=== PATIENT | female | born 1960 | race Caucasian/White ===

== ENCOUNTER 2018-08-16 05:05 | Inpatient (IN) ==
[2018-08-16] MEDS ORDERED: Chlorhexidine 4% Topical 120 APPLIC/120 ML Bottle TOPICAL SCH (05:45)
[2018-08-16] MEDS ORDERED: Chlorhexidine Gluconate 2% 1 Pack (2 Cloths) TOPICAL ONE (05:45)
[2018-08-16] MEDS ORDERED: Sodium Chlor 0.9% Inj 40 ML, Bupivacaine Liposo PF 1.3% Inj 20 ML P-ARTICULR SCH ×2 (05:45)
[2018-08-16] MEDS ORDERED: Sodium Chlor 0.9% Inj 500 ML IV.CONT ONE (05:45)
[2018-08-16] MEDS ORDERED: Metoprolol Tartrate 25 MG Tablet PO ONE (05:45)
[2018-08-16] MEDS ORDERED: SODIUM CHLOR 0.9% IV.SIG SCH ×2 (06:00→10:00)
[2018-08-16] MEDS ORDERED: ceFAZolin 2 GM Premix Inj 2 GM/50 ML PIGGYBACK IV.SIG SCH (06:00)
[2018-08-16] MEDS ORDERED: TRANEXAMIC ACID IV.SIG SCH ×2 (06:00→10:00)
[2018-08-16] MEDS ORDERED: Famotidine PF Inj 20 MG/2 ML Vial ONE (06:22)
[2018-08-16] MEDS ORDERED: Propofol Inj 500 MG/50 ML Vial ONE (06:22)
[2018-08-16] MEDS ORDERED: fentaNYL Citrate Inj 100 MCG/2 ML Ampul ONE (06:22)
[2018-08-16] MEDS ORDERED: Bupivacaine/Dextrose 0.75% Inj 2 ML Ampul ONE (06:46)
[2018-08-16] MEDS ORDERED: Ketamine Inj 50 MG/5 ML Syringe IV.PUSH ONE (06:46)
[2018-08-16] MEDS ORDERED: ACETAMINOPHEN 650 MG PO PRN (06:54)
[2018-08-16] MEDS ORDERED: Morphine Inj 4 MG/ML Vial IV.PUSH PRN (06:55)
[2018-08-16] MEDS ORDERED: Zolpidem Tartrate 5 MG Tablet PO PRN (06:55)
[2018-08-16] MEDS ORDERED: Bisacodyl 10 MG Supp RECTAL PRN (06:55)
[2018-08-16] MEDS ORDERED: Acetaminophen 325 MG Tablet PO PRN (06:55)
[2018-08-16] MEDS ORDERED: Tranexamic Acid Inj 0 MG in Sodium Chlor 0.9% Inj 100 ML IV.SIG ONE (06:55)
[2018-08-16] MEDS ORDERED: Aluminum/Magnesium/Simethacone Susp 30 ML UDC PO PRN (06:55)
[2018-08-16] MEDS ORDERED: Post-op Orders (for Pharmacy) OTHER STA (06:55)
--- NOTE | 2018-08-16 07:02 | P.DCO ---
- Physical Therapy Physical Therapy: Gait training Hip: Total hip, Protocol: Left, Posterior hip precautions, Progress to weight bearing Canvas Knee Splint: When in bed with 2 pillows between thighs Left Lower Extremity Weight Bearing: Weight bearing as tolerated Left Lower Extremity Range of Motion: Active ROM - Nursing Nursing: Dressing changes Dressing changes: Daily dressing change, Coverderm/Primapore Additional instructions: Do not remove Dermabond Prineo (the tape that is directly on the wound). Leave the Optifoam dressing in place for 7 days. After this, daily dressing changes will be done taking care to avoid injuring or removing the Dermabond Prineo. - Certification Need for Home Health services: I have seen patient Thao Vaughan on 08/16/18. My clinical findings support the need for the requested home health care services because: Need for Home Health Services: Limited ability to care for self, High risk of falls Homebound Certification: I certify that my clinical findings support that this patient is homebound because: Homebound Certification: Post-op weakness, Unsteady gait/balance, Unsafe to leave home unassisted
--- NOTE | 2018-08-16 09:21 | P.OP ---
- Preoperative Diagnosis (1) Primary osteoarthritis of left hip - Postoperative Diagnosis (1) Primary osteoarthritis of left hip Date of procedure: 08/16/18 Procedure: Left total hip arthroplasty using [place] prosthesis. Anesthesia: local (Exparel), spinal Surgeon: Stefan Baird MD Film Producer: SCOTT Joaquin Estimated blood loss (mL): 200 Pathology: none sent Operation and Findings: Indications and Findings: This 57-year-old woman has had long-standing left hip pain for at least a year. She has had progressive worsening of her pain with loss of ability to activities of daily living without pain. Ambulation tolerance is 10-15 minutes. She has had intra-articular corticosteroids, nonsteroidal anti-inflammatory agents, activity modification, exercise, physical therapy and ambulatory aids without any benefit. Physical findings showed limited range of motion with crepitation on motion and an antalgic gait. X-rays showed severe osteoarthritis with loss of articular cartilage to bone- on-bone, subchondral sclerosis, subchondral cysts and osteophytes. Operative findings: There is severe osteoarthritis with loss of articular cartilage to [id number], subchondral sclerosis and osteophytes. Implants: The acetabular component was a 52 mm Trident II Tritanium cluster shell with a 36 mm inner diameter, X3 polyethylene, 0 degree lip liner. The femoral component was an Accolade II size 4 x 132 degrees. The femoral head was a Biolox Delta size 36 mm outer diameter, -5 mm offset. The patient was brought to the clean air operating suite and a spinal anesthetic was administered. The patient was positioned into a lateral position with the operative hip up on a Biomet lateral positioner. The hip and lower extremity were prepped with alcohol, Hibiclens and ChloraPrep and draped in the usual manner with the hip draped free. Patient received prophylactic antibiotics preoperatively. The patient also received tranexamic acid preoperatively. An appropriate timeout procedure was carried out. An incision was made from the midportion of the greater trochanter proximally and posteriorly paralleling the fibers of the gluteus rosalia. The incision was deepened through subcutaneous tissues down to the fascia vidal and gluteus fascia. The gluteus fascia was then split longitudinally in line with its fibers up to the upper portion of the fascia vidal. With wound towels in place, the Charnley retractor was inserted. The sciatic nerve was identified and protected throughout the procedure. Dissection was then carried down to the interval between the gluteus minimus and the piriformis. A retractor was inserted. The piriformis and obturator conjoined tendon was released from the greater trochanter and reflected off the capsule. A capsulotomy was made longitudinally along the femoral neck to the base of the femoral neck and then curved distally along the posterior aspect of the greater trochanter. The hip was internally rotated. Further release of the external rotators was carried out exposing the hip. The hip was dislocated. The femoral neck was transected at the appropriate level using the oscillating saw placement of appropriate retractors. The femoral head was removed. Preparation of the femur was initiated with a box osteotome followed by a curet to identify the medullary canal. Broaching was then initiated with the size 0 broach and went in 1 size increments up to size 4. The broach handle was removed. The femoral neck was then trimmed with a calcar planar. Attention was then directed to the acetabulum. Soft tissues were debrided from the acetabulum. Retractors were placed about the acetabulum. Reaming was then initiated with the 45 millimeter reamer and went in 1-2 mm increments up to the 52 millimeter diameter reamer. A trial reduction with the 52 millimeter trial prosthesis was carried out. When this was deemed to be appropriate, the trial prosthesis was removed. The acetabulum was irrigated and cleaned. The actual prosthesis as noted above was impacted into place and seated appropriately. Drill holes were made and sounded. Appropriate sized screws were inserted to stabilize the acetabulum further. The liner as noted above was inserted into the acetabular shell and impacted into place. Osteophytes were trimmed from the acetabulum. Local anesthetic was administered throughout the area of the acetabulum and anterior aspect of the femur. The trial neck was placed on the broach for the above-noted prosthesis. The femoral head trial was placed onto the femoral neck . A trial reduction was carried out. Adjustment was made as needed. The stability, leg length and motion were excellent. There was no pistoning. The trial prosthesis was removed. The broach was removed. The femoral component was impacted into the medullary canal of the femur after irrigation and suctioning. When this was appropriately seated a trial reduction was again carried out with the trial prosthesis. There was no pistoning. The leg length was appropriate. The stability and motion were excellent. The trial prosthesis was then removed. After cleaning and drying the trunion of the femoral component, the above-noted femoral head was impacted onto the trunnion. The hip was reduced. The stability and mobility were again checked along with leg lengths as noted above. The hip was positioned appropriately and closure commenced after the remainder of the local anesthetic was injected throughout the hip. The external rotators and capsule were repaired with #1 Vicryl interrupted transosseous sutures with a Krakw technique to reattach the external rotators and capsule to the posterior aspect of the greater trochanter. The capsule itself on the superior aspect was closed with #1 Vicryl interrupted [id number] sutures. The sciatic nerve was inspected. The fascia vidal and gluteus fascia were repaired with #1 Vicryl interrupted [id number] sutures. The subcutaneous tissues were closed with 2-0 Vicryl interrupted simple sutures with buried knots. The skin was closed with a continuous subcuticular closure of 4-0 Monocryl. The wound was then approximated with Dermabond Prineo. A silver impregnated dressing was applied to the hip. A knee immobilizer was applied to the leg. The patient was transferred from the operating room to the recovery room in satisfactory condition having tolerated the procedure well. Counts are correct. Specimens: None. Estimated blood loss: 200 mL
[2018-08-16] MEDS: Ketorolac Inj 30 MG/ML (IVP) Vial IV.PUSH SCH ×3 (10:01→20:53)
--- NOTE | 2018-08-16 10:52 | XR ---
EXAM DATE: 08/16/2018 10:38 AM EST AGE/SEX: 57 years / Female INDICATIONS: Post-op left total hip arthroplasty. CLINICAL DATA: This is the patient's initial encounter. Patient reports that signs and symptoms have been present for 1 day and indicates a pain score of 5/10. MEDICAL/SURGICAL HISTORY: None. None. COMPARISON: No prior exams available for comparison. FINDINGS: Post surgical changes following left hip replacement are noted. Acetabular and femoral components are well seated in satisfactory alignment. Bony structures remain intact without evidence of acute complication. CONCLUSION: Satisfactory postoperative appearance of the left hip and pelvis following left hip replacement. Electronically signed by: Boris Osullivan MD 08/16/2018 10:51 AM EST
--- NOTE | 2018-08-16 11:09 | P.CON ---
History of Present Illness Consult date: 08/16/18 Requesting Physician: Stefan Baird Reason for Consult: medical Management. Primary Care Provider: Chuck Bailey MD Chief Complaint: Joint pain. History of Present Illness: This is a pleasant 57 y/o female brought in today with Diagnosis of Primary osteoarthritis of the left Hip for Left Total hip arthroplasty using [place] Prosthesis, by Doctor Stefan Baird, she has long standing left hip pain for a year, progressive worsening of pain and ability to activities of daily living without pain Ambulation Tolerance 10-15 minutes, status post intra-articular corticosteroids , nonsteroidal anti-inflammatory agents, activity modification, exercise, physical therapy and ambulatory aids without any benefit. Physical findings showed limited range of motion with crepitation on motion and an antalgic gait. X-rays showed severe osteoarthritis with loss of articular cartilage to [id number], subchondral sclerosis, subchondral cysts and osteophytes. Seen in PACU complaint of mild pain on her left hip area. discussed with nurse no complaint, no nausea, vomit or diarrhea. Review of Systems All other systems reviewed negative except as stated in HPI PMFSH - History History Provided By: Patient - Medical History Medical History: Medical History (Last Reviewed 08/16/18 @ 07:54 by Ca Shaffer) Anxiety Arthritis Back pain Chronic pain GERD (gastroesophageal reflux disease) History of asthma History of concussion Hypothyroidism Neck pain - Surgical History Surgical History: Surgical History (Last Reviewed 08/16/18 @ 07:54 by Ca Shaffer) History of tonsillectomy - Family History Family History: Family History (Last Updated 08/16/18 @ 11:44 by Willy Randall MD) Mother Family history of acute myocardial infarction Mother Family history of diabetes mellitus - Tobacco History Second Hand Smoke Exposure: No Smoking Status: Never smoker - Alcohol History How Often Do You Have a Drink Containing Alcohol: 2 to 4 times a month - Substance Use History Substance History: No History of Abuse - Travel History Recent Travel in the [place] Within the Last 8 Weeks: No Recent Travel Out of the Country Within the Last 8 Weeks: No Medications and Allergies Active Medications: Active Medications Acetaminophen (Tylenol) 650 mg PO Q6H PRN PRN Reason: Pain Less Than 3 On Scale Hydrocodone Bitart/Acetaminophen (Smoot 7.5/325) 1 tab PO Q4H PRN PRN Reason: PAIN SCALE 4 TO 6 MODERATE Hydrocodone Bitart/Acetaminophen (Smoot 7.5/325) 2 tab PO Q6H PRN PRN Reason: PAIN SCALE 7 TO 10 SEVERE Al Hydrox/Mg Hydrox/Simethicone (Mag-Al Plus Susp Liq) 30 ml PO Q6H PRN PRN Reason: INDIGESTION Al Hydroxide/Mg Hydroxide (Milk Of Magnesia Liq) 30 ml PO BID PRN PRN Reason: Mild Constipation Bisacodyl (Dulcolax Supp) 10 mg RECTAL DAILY PRN PRN Reason: SEVERE CONSITIPATION Celecoxib (Celebrex) 200 mg PO DAILY [facility] Chlorhexidine Gluconate (Hibiclens 4% Topical) 1 applicatio TOPICAL ONCE [facility] Stop: 08/20/18 05:44 Sodium Chloride 40 ml/ (Bupivacaine Liposome 20 ml) 0 ml P-ARTICULR ONCE [facility] Stop: 08/16/18 21:00 Last Admin: 08/16/18 07:40 Dose: 60 bag Diphenhydramine HCl (Benadryl) 25 mg PO Q6H PRN PRN Reason: ITCHING Lactated Ringer's (Lr 1000 Ml Inj) 1,000 mls @ 30 mls/hr IV.CONT .Q24H ONE Stop: 08/17/18 05:44 Last Infusion: 08/16/18 09:19 Dose: Infused Sodium Chloride (Ns Inj) 500 mls @ 30 mls/hr IV.CONT .[id number] ONE Stop: 08/16/18 22:24 Last Admin: 08/16/18 06:03 Dose: Not Given Cefazolin Sodium/Dextrose (Ancef 2 Gm Premix Inj) 2 gm in 50 mls @ 100 mls/hr IV.SIG ONCE RICHIE Stop: 08/16/18 21:00 Last Infusion: 08/16/18 08:11 Dose: Infused Tranexamic Acid 1,090 mg/ (Sodium Chloride) 110.9 mls @ 200 mls/hr IV.SIG ONCE [facility] Stop: 08/16/18 21:00 Last Infusion: 08/16/18 08:11 Dose: Infused Tranexamic Acid 1,090 mg/ (Sodium Chloride) 110.9 mls @ 200 mls/hr IV.SIG ONCE [facility] Stop: 08/16/18 21:00 Last Admin: 08/16/18 10:12 Dose: 200 mls/hr Cefazolin Sodium 1,000 mg/ (Sodium Chloride) 100 mls @ 200 mls/hr IV.SIG Q6H [facility] Stop: 08/17/18 01:18 Lactated Ringer's (Lr 1000 Ml Inj) 1,000 mls @ 80 mls/hr IV.CONT .[id number] [facility] Last Admin: 08/16/18 09:57 Dose: 80 mls/hr Ketorolac Tromethamine (Toradol Inj) 15 mg IV.PUSH Q6H [facility] Stop: 08/18/18 02:01 Last Admin: 08/16/18 10:01 Dose: 15 mg Lactulose (Lactulose Liq) 30 ml PO DAILY PRN PRN Reason: SEVERE CONSITIPATION Levothyroxine Sodium (Synthroid) 100 mcg PO DAILY@0600 [facility] Miscellaneous Information (Mis Nursing Information) 0 each OTHER UNSCH PRN PRN Reason: SEE LABEL COMMENTS Stop: 08/17/18 09:39 Morphine Sulfate (Morphine Inj) 2 mg IV.PUSH Q3H PRN PRN Reason: BREAKTHROUGH PAIN Ondansetron HCl (Zofran Odt) 4 mg PO Q6H PRN PRN Reason: NAUSEA OR VOMITING Pantoprazole Sodium (Protonix) 20 mg PO DAILY [facility] Rivaroxaban (Xarelto) 10 mg PO Q24H [facility] Senna/Docusate Sodium (Keily-Colace) 1 tab PO BID [facility] Sennosides (Senokot) 17.2 mg PO BID PRN PRN Reason: Moderate Constipation Sodium Chloride (Ns Flush) 2 ml IV.FLUSH BID [facility] Sodium Chloride (Ns Flush) 2 ml IV.FLUSH PRN PRN PRN Reason: FLUSH AFTER USING IV ACCESS Zolpidem Tartrate (Ambien) 5 mg PO HS PRN PRN Reason: INSOMNIA Allergies Allergy/AdvReac Type Severity Reaction Status Date / Time aspirin Allergy Severe Wheezing Verified 08/16/18 05:48 Home Medications Medication Instructions Recorded Confirmed Type celecoxib [Celebrex] 200 mg PO DAILY 08/02/18 08/16/18 History levothyroxine 100 mcg PO DAILY 08/02/18 08/16/18 History naproxen sodium 220 mg PO BID 08/02/18 08/16/18 History omeprazole 20 mg PO DAILY 08/02/18 08/16/18 History acetaminophen [Tylenol Arthritis 650 mg PO Q8H PRN 08/16/18 08/16/18 History Pain] Physical Exam Vital signs: Vital Signs 08/16/18 05:45 08/16/18 09:49 Temperature 98.2 F 98.3 F Pulse Rate 84 86 Respiratory Rate 16 18 Blood Pressure 163/79 H 116/61 Pulse Oximetry 95 99 Intake & Output 08/15/18 08/16/18 08/16/18 18:59 06:59 18:59 Intake Total 2760.9 / 2760.9 Output Total 200 / 200 Balance 2560.9 / 2560.9 Weight 109 kg Intake: IV 1160.9 / 1160.9 LR 1000 mL Inj 1,000 ML @ 30 1000 / 1000 mls/hr IV.CONT .Q24H ONE Rx#: [id number] Cyklokapron Inj 1,090 MG In NS 110.9 / 110.9 Inj 100 ML @ 200 mls/hr IV.SIG ONCE [facility]ICHIE Rx#:[id number] Ancef 2 GM Premix Inj 2 gm In 50 / 50 50 ml @ 100 mls/hr IV.SIG ONCE RICHIE Rx#:[id number] Anesthesia Amount 1600 / 1600 Output: Estimated Blood Loss 200 / 200 Other: Weight On Admission 109 kg Narrative: GENERAL: This is a well-nourished, well-developed patient, in no apparent distress. CARDIOVASCULAR: Regular rate and rhythm without murmurs, gallops, or rubs. RESPIRATORY: Clear to auscultation. Breath sounds equal bilaterally. No wheezes , rales, or rhonchi. GASTROINTESTINAL: Abdomen soft, non-tender, nondistended. Normal active bowel sounds MUSCULOSKELETAL: Extremities without clubbing, cyanosis, left hip dressed. NEURO: Alert & Oriented x4 to person, place, time, situation. Moves all ext x4 Assessment and Plan - Plan 1. Primary osteoarthritis of the left Hip Status post for Left Total hip arthroplasty using [place] Prosthesis by Doctor Stefan Baird. continue Pain medicine and Physical therapy, manager star for discharge. 2. Hypothyroidism to continue hormonal replacement 3. Anxiety disorder stable 4. GERD to continue Protonix. 5. Chronic Pain syndrome by history DVT prophylaxis as per Orthopedic surgery. Code Status: Full code. Discussed Condition With: Patient and Nurse. Discharge Planning: as per Attending physician.
[2018-08-16] MEDS: Senna/Docusate Sodium 8.6/50 MG Tablet PO SCH ×2 (14:07→20:54)
[2018-08-16] MEDS: Pantoprazole Sodium 20 MG DR Tablet PO SCH (14:07)
[2018-08-16] MEDS: ceFAZolin 1 GM Premix Inj 1 GM/50 ML FROZ.PIGGY IV.SIG SCH ×2 (14:08→20:53)
[2018-08-17] MEDS: ceFAZolin 1 GM Premix Inj 1 GM/50 ML FROZ.PIGGY IV.SIG SCH (02:11)
[2018-08-17] MEDS: Ketorolac Inj 30 MG/ML (IVP) Vial IV.PUSH SCH ×3 (02:12→15:27)
[2018-08-17] MEDS ORDERED: Levothyroxine 100 MCG Tablet PO SCH (06:00)
--- NOTE | 2018-08-17 06:03 | P.PNOP ---
Subjective Interval history: Postop day #1 She is doing very well. She has virtually no pain. She is very happy with her progress to date. Physical therapy reports that the ambulation distance was 140 feet. Physical Exam Vital signs: Vital Signs 08/16/18 09:49 08/16/18 10:15 08/16/18 10:30 Temperature 98.3 F Pulse Rate 86 77 72 Respiratory Rate 18 18 18 Blood Pressure 116/61 128/61 123/69 Pulse Oximetry 99 99 97 08/16/18 10:45 08/16/18 11:00 08/16/18 12:05 Temperature 97.8 F Pulse Rate Respiratory Rate 18 18 18 Blood Pressure 127/73 130/72 138/74 Pulse Oximetry 97 97 97 08/16/18 12:35 08/16/18 16:00 08/16/18 20:00 Temperature 97.8 F 98.0 F 98 F Pulse Rate 79 91 H 74 Respiratory Rate 18 18 18 Blood Pressure 138/63 132/62 115/62 Pulse Oximetry 96 95 96 08/16/18 20:54 08/16/18 21:23 08/16/18 22:56 Temperature Pulse Rate Respiratory Rate 18 18 18 Blood Pressure Pulse Oximetry 08/17/18 00:00 08/17/18 02:42 08/17/18 03:16 Temperature 98 F Pulse Rate 77 Respiratory Rate 18 18 18 Blood Pressure 125/60 Pulse Oximetry 97 08/17/18 04:00 Temperature 98 F Pulse Rate 67 Respiratory Rate 18 Blood Pressure 133/65 Pulse Oximetry 97 Intake & Output 08/16/18 08/16/18 08/17/18 06:59 18:59 06:59 Intake Total 2810.9 / 2810.9 1100 / 1100 Output Total 600 / 600 Balance 2210.9 / 2210.9 1100 / 1100 Weight 109 kg Intake: IV 1210.9 / 1210.9 1100 / 1100 LR 1000 mL Inj 1,000 ML @ 80 1000 / 1000 1000 / 1000 mls/hr IV.CONT .[id number] RICHIE Rx# :[id number] Cyklokapron Inj 1,090 MG In NS 110.9 / 110.9 Inj 100 ML @ 200 mls/hr IV.SIG ONCE RICHIE Rx#:[id number] Ancef 1 GM Premix Inj 1 gm In 50 / 50 100 / 100 50 ml @ 100 mls/hr IV.SIG Q6H [facility] Rx#:[id number] Ancef 2 GM Premix Inj 2 gm In 50 / 50 50 ml @ 100 mls/hr IV.SIG ONCE RICHIE Rx#:[id number] Anesthesia Amount 1600 / 1600 Output: Urine 400 / 400 Estimated Blood Loss 200 / 200 Other: # Voids 1 Date of Last Bowel Movement 08/16/18 Weight On Admission 109 kg Narrative: She is resting comfortably, supine in bed. The dressing is dry and intact. Her neurovascular status is intact. Results - Labs Laboratory Results - last 24 hr 08/16/18 05:50 Blood Type O Negative Blood Type Recheck Required Antibody Screen Negative - Imaging Impressions Hip X-Ray 08/16/18 06:51 CONCLUSION: Satisfactory postoperative appearance of the left hip and pelvis following left hip replacement. - Procedures Left total hip arthroplasty using [place] prosthesis on 08/16/2018. Assessment and Plan - Ortho Post Op Day # 1 - Problem List (1) Status post total replacement of left hip Code(s): Z96.642 - Presence of left artificial hip joint Status: Acute Plan: Continue postop care and PT. - Assessment and Plan Condition: Good. Orthopedically stable. DVT prophylaxis: TEDs, aspirin, sequentials. Discharge plans: Home with home health care. An appointment was scheduled through the office. Prescriptions: [place] 7.5/325; the [employer] database was consulted prior to making this prescription.; Patient is having significant pain caused by a total hip arthroplasty which will last more than 3 days. Trial of Tylenol has not helped. I believe that it is medically necessary to treat patients pain because it is affecting patients ability to participate in postoperative rehabilitation and perform activities of daily living in a comfortable and efficient manner.
--- NOTE | 2018-08-17 06:23 | P.DS ---
Date of admission: 08/16/18 05:05 Primary care physician: Chuck Bailey MD Attending physician on discharge: Stefan Baird Anticipated date of discharge: 08/17/18 Brief History from admission: This 57-year-old woman has had long-standing left hip pain nonresponsive to conservative measures including anti-inflammatory agents, analgesics, injection of corticosteroid into the joint, ambulatory aids. This has been functionally disabling more recently. Physical findings showed limited range of motion with an antalgic gait, rotation on motion, tenderness on motion. X-rays showed severe osteoarthritis with loss of articular cartilage to bone-on- bone. DS: Diagnosis - Discharge Diagnosis (1) Status post total replacement of left hip Status: Acute Diagnosis: Principal (2) Primary osteoarthritis of left hip Status: Chronic Diagnosis: Principal DS: Medications - Discharge Medications Prescriptions: hydrocodone-acetaminophen 1 tab PO Q4H PRN 7 Days #42 tab PRN Reason: Pain rivaroxaban [Xarelto] 10 mg PO Q24H 30 Days #30 tab DS: Summary Hospital Course: The patient was admitted as noted above. The above noted operative procedure was carried out that day. Preoperatively prophylactic antibiotics were administered Ancef according to protocol. These were continued postoperatively. The patient also received tranexamic acid to help with hemostasis according to protocol. In the postanesthesia care unit mechanical methods of DVT prophylaxis in the form of ROMEL stockings and sequentials were initiated. Physical therapy was initiated on the day of surgery. On postoperative day #1 physical therapy continued. DVT prophylaxis with Xarelto was initiated at this time. The patient continued physical therapy throughout the hospitalization. The distance walked and range of motion improved throughout the hospitalization. The patient was discharged on postoperative day 1 with the disposition being to home with home health care. An appointment for follow-up was made prior to admission. - Time Spent with Patient Total time spent providing and/or coordinating discharge services: Less than 30 minutes - Quality: VTE Deep Vein Thrombosis/Pulmonary Embolism Present on Admission: No Exam Vital signs: Vital Signs 08/16/18 09:49 08/16/18 10:15 08/16/18 10:30 Temperature 98.3 F Pulse Rate 86 77 72 Respiratory Rate 18 18 18 Blood Pressure 116/61 128/61 123/69 Pulse Oximetry 99 99 97 08/16/18 10:45 08/16/18 11:00 08/16/18 12:05 Temperature 97.8 F Pulse Rate Respiratory Rate 18 18 18 Blood Pressure 127/73 130/72 138/74 Pulse Oximetry 97 97 97 08/16/18 12:35 08/16/18 16:00 08/16/18 20:00 Temperature 97.8 F 98.0 F 98 F Pulse Rate 79 91 H 74 Respiratory Rate 18 18 18 Blood Pressure 138/63 132/62 115/62 Pulse Oximetry 96 95 96 08/16/18 20:54 08/16/18 21:23 08/16/18 22:56 Temperature Pulse Rate Respiratory Rate 18 18 18 Blood Pressure Pulse Oximetry 08/17/18 00:00 08/17/18 02:42 08/17/18 03:16 Temperature 98 F Pulse Rate 77 Respiratory Rate 18 18 18 Blood Pressure 125/60 Pulse Oximetry 97 08/17/18 04:00 Temperature 98 F Pulse Rate 67 Respiratory Rate 18 Blood Pressure 133/65 Pulse Oximetry 97 Intake & Output 08/16/18 08/16/18 08/17/18 06:59 18:59 06:59 Intake Total 2810.9 / 2810.9 1100 / 1100 Output Total 600 / 600 Balance 2210.9 / 2210.9 1100 / 1100 Weight 109 kg Intake: IV 1210.9 / 1210.9 1100 / 1100 LR 1000 mL Inj 1,000 ML @ 80 1000 / 1000 1000 / 1000 mls/hr IV.CONT .[id number] RICHIE Rx# :[id number] Cyklokapron Inj 1,090 MG In NS 110.9 / 110.9 Inj 100 ML @ 200 mls/hr IV.SIG ONCE RICHIE Rx#:[id number] Ancef 1 GM Premix Inj 1 gm In 50 / 50 100 / 100 50 ml @ 100 mls/hr IV.SIG Q6H RICHIE Rx#:[id number] Ancef 2 GM Premix Inj 2 gm In 50 / 50 50 ml @ 100 mls/hr IV.SIG ONCE RICHIE Rx#:[id number] Anesthesia Amount 1600 / 1600 Output: Urine 400 / 400 Estimated Blood Loss 200 / 200 Other: # Voids 1 Date of Last Bowel Movement 08/16/18 Weight On Admission 109 kg Narrative: She is resting comfortably, supine in bed. The dressing is dry and intact. Her neurovascular status is intact. Results Procedures completed during hospitalization: Left total hip arthroplasty using [place] prosthesis on 08/16/2018. Labs on day of discharge: Labs from last 24 hours 08/16/18 05:50 Blood Type O Negative Blood Type Recheck Required Antibody Screen Negative - Impressions ITS Impressions Hip X-Ray 08/16/18 06:51 CONCLUSION: Satisfactory postoperative appearance of the left hip and pelvis following left hip replacement. Discharge Plan - Discharge Disposition Patient Disposition: W/Home Health Service - Discharge Condition Condition: Stable - Discharge Order Discharge Orders: Discharge Order (Routine); Ordered 08/17/18 Ordered By: Stefan Baird Hospitalist Clear for Discharge (Routine); Ordered 08/17/18 Ordered By: Willy Randall - Discharge Details Anticipated Discharge Date: 08/17/18 - Physicians Team Primary Care Provider: Chuck Bailey Attending Provider: Stefan Baird Other Providers: Flor Murphy,[place] - Rxs /Orders / Referrals /Forms Prescriptions: New hydrocodone-acetaminophen 7.5-325 mg Tablet 1 tab PO Q4H PRN (Reason: Pain) 7 Days Qty: 42 RF: 0 rivaroxaban [Xarelto] 10 mg Tablet 10 mg PO Q24H 30 Days Qty: 30 RF: 0 Continue acetaminophen [Tylenol Arthritis Pain] 650 mg Tablet Extended Release 650 mg PO Q8H PRN (Reason: Pain) celecoxib [Celebrex] 200 mg Capsule 200 mg PO DAILY levothyroxine 100 mcg Tablet 100 mcg PO DAILY omeprazole 20 mg Capsule,Delayed Release(Dr/Ec) 20 mg PO DAILY Discontinued naproxen sodium 220 mg Tablet 220 mg PO BID Referrals: Flor Murphy [facility] [Outside] - See Instructions Chuck Bailey MD [Primary Care Provider] - See Instructions Stefan Baird MD [Physician] - See Instructions - Discharge Instructions Patient Printed Instructions: How to Use an Incentive Spirometer (GEN), Narcotic Pain Management (DC), Fall Prevention (GEN), Total Hip Replacement (DC) Additional Instructions: Make or keep your follow up appointments as directed. Take medications as directed. Continue to wear ROMEL hose after discharge, not constantly. Continue to use incentive spirometer after discharge. - Post Discharge Care Plan Care Plan Goals: Discharge Care Plan Goals for Total Hip Replacement You had a hip replacement surgery. This means your natural hip was replaced with an artificial joint (prosthesis). You may be recovering at home or in a rehabilitation facility. Either way, you must take care of your new hip. Here are some goals to help you heal well. Directions to Meet your Goals: 1. Activity & Exercises: * Take pain medicine as directed by your doctor. * Dont drive until your doctor says its OK. And never drive while taking opioid pain medicine. * Wear the support stockings you were given in the hospital as directed by your surgeon. * Dont sit for more than 30 to 45 minutes at one time. * Dont lean forward while sitting. * Dont cross your legs. * Keep your feet flat on the floor. Dont turn your foot or leg inward. This stresses your hip joint. * Use an elevated toilet seat for 6 weeks after surgery. * Nap if you are tired, but dont stay in bed all day. * Sit on a firm cushion when you ride in a car and avoid sitting too low. Try not to bend your hip too much when getting in and out of the car. 2. Prevent Falls/Injury: * Follow your doctors orders regarding how much weight to put on the affected leg. * Dont bend at the hip when you bend over. Don't bend at the waist to put on socks and shoes. And avoid picking up items from the floor. * Use a cane, crutches, a walker, or handrails until your balance, flexibility, and strength improve. And remember to ask for help from others when you need it. * Free up your hands so that you can use them to keep balance. Use a xiao pack , apron, or pockets to carry things. * Arrange your household to keep the items you need handy. Keep everything else out of the way. * Remove items that may cause you to fall, such as throw rugs and electrical cords. * Use nonslip bath mats, grab bars, an elevated toilet seat, and a shower chair in your bathroom * Sit on a shower stool or chair when you shower to keep from falling. 3. Precautions: * Prevent infection. Any infection will need to be treated immediately. Call your doctor right away if you think you might have an infection. * Tell your dentist that you have an artificial joint and take antibiotics as prescribed before any dental work. * Tell all your healthcare providers about your artificial joint before any medical procedure. * Maintain a healthy weight. Get help to lose any extra pounds. Added body weight puts stress on the joints. 4. Incision Care: * Prevent infection by washing your hands often. If an infection occurs, it will need to be treated right away. * Call your doctor right away if you think you may have an infection. Symptoms include a fever or an incision that leaks white, green, or yellow fluid. * Don't soak your incision in water until your doctor says its OK. This means no hot tubs, bathtubs, or swimming pools. * Follow your doctor's instructions for changing the dressing. * Dont rub the incision, or apply creams or lotions to it. * If you notice any redness or drainage around the bandage site, contact your surgeon's office immediately. 5. Follow-Up: Do Not miss your follow-up appointment. Keep up with all your appointments and yearly check ups When to call your doctor: Call your doctor right away if you have: Hip pain gets worse Pain or swelling in your calf or leg not related to your incision Tenderness or redness in your calf Fever of 100.4F (38C) or higher, or as directed by your healthcare provider Shaking chills Swelling or redness at the incision site gets worse Fluid draining from the incision Call 911: Call 911 right away if you have: Chest pain Shortness of breath Any pain or tenderness in your calf
[2018-08-17 06:44] LABS: Hematocrit 37.8 % (35.0-46.0); Hemoglobin 12.5 gm/dL (11.6-15.3)
[2018-08-17 07:17] LABS: Anion Gap 8 meq/L (5-15); Blood Urea Nitrogen 10 mg/dL (7-18); Calcium 8.4 mg/dL (8.5-10.1); Carbon Dioxide 26.4 meq/L (21.0-32.0); Chloride 107 meq/L (98-107); Glomerular Filtration Rate Greater Than 89 mL/min (>89); Glucose,Random 130 mg/dL (74-106); Potassium 3.8 meq/L (3.5-5.1); Sodium 141 meq/L (136-145)
[2018-08-17] MEDS ORDERED: Rivaroxaban 10 MG Tablet PO SCH (08:40)
[2018-08-17] MEDS: Senna/Docusate Sodium 8.6/50 MG Tablet PO SCH (09:22)
[2018-08-17] MEDS: Pantoprazole Sodium 20 MG DR Tablet PO SCH (09:22)
--- NOTE | 2018-08-17 10:25 | P.PN ---
Subjective Interval history: This is a pleasant 57 y/o female brought in today with Diagnosis of Primary osteoarthritis of the left Hip for Left Total hip arthroplasty using [place] Prosthesis, by Doctor Stefan Baird, she has long standing left hip pain for a year, progressive worsening of pain and ability to activities of daily living without pain Ambulation Tolerance 10-15 minutes, status post intra-articular corticosteroids , nonsteroidal anti-inflammatory agents, activity modification, exercise, physical therapy and ambulatory aids without any benefit. Physical findings showed limited range of motion with crepitation on motion and an antalgic gait. X-rays showed severe osteoarthritis with loss of articular cartilage to [id number], subchondral sclerosis, subchondral cysts and osteophytes. Seen in PACU complaint of mild pain on her left hip area. discussed with nurse 08/17: Stable in her bedroom, already recommended for discharge by her Attending physician, no further recommendations by Medical team, no nausea, vomit or diarrhea. Physical Exam Vital signs: Vital Signs 08/16/18 10:30 08/16/18 10:45 08/16/18 11:00 Temperature Pulse Rate 72 Respiratory Rate 18 18 18 Blood Pressure 123/69 127/73 130/72 Pulse Oximetry 97 97 97 08/16/18 12:05 08/16/18 12:35 08/16/18 16:00 Temperature 97.8 F 97.8 F 98.0 F Pulse Rate 79 91 H Respiratory Rate 18 18 18 Blood Pressure 138/74 138/63 132/62 Pulse Oximetry 97 96 95 08/16/18 20:00 08/16/18 20:54 08/16/18 21:23 Temperature 98 F Pulse Rate 74 Respiratory Rate 18 18 18 Blood Pressure 115/62 Pulse Oximetry 96 08/16/18 22:56 08/17/18 00:00 08/17/18 02:42 Temperature 98 F Pulse Rate 77 Respiratory Rate 18 18 18 Blood Pressure 125/60 Pulse Oximetry 97 08/17/18 03:16 08/17/18 04:00 08/17/18 08:00 Temperature 98 F 98.0 F Pulse Rate 67 73 Respiratory Rate 18 18 20 Blood Pressure 133/65 127/89 Pulse Oximetry 97 96 Intake & Output 08/16/18 08/17/18 08/17/18 18:59 06:59 18:59 Intake Total 2810.9 / 2810.9 1160 / 1160 Output Total 600 / 600 Balance 2210.9 / 2210.9 1160 / 1160 Weight 106.6 kg Intake: IV 1210.9 / 1210.9 1100 / 1100 LR 1000 mL Inj 1,000 ML @ 80 1000 / 1000 1000 / 1000 mls/hr IV.CONT .[id number] RICHIE Rx# :[id number] Cyklokapron Inj 1,090 MG In NS 110.9 / 110.9 Inj 100 ML @ 200 mls/hr IV.SIG ONCE RICHIE Rx#:[id number] Ancef 1 GM Premix Inj 1 gm In 50 / 50 100 / 100 50 ml @ 100 mls/hr IV.SIG Q6H RICHIE Rx#:[id number] Ancef 2 GM Premix Inj 2 gm In 50 / 50 50 ml @ 100 mls/hr IV.SIG ONCE RICHIE Rx#:[id number] Oral 60 / 60 Anesthesia Amount 1600 / 1600 Output: Urine 400 / 400 Estimated Blood Loss 200 / 200 Other: # Voids 1 1 Date of Last Bowel Movement 08/16/18 Narrative: GENERAL: Obesity, well-developed patient, in no apparent distress. CARDIOVASCULAR: Regular rate and rhythm without murmurs, gallops, or rubs. RESPIRATORY: Clear to auscultation. Breath sounds equal bilaterally. No wheezes , rales, or rhonchi. GASTROINTESTINAL: Abdomen soft, non-tender, nondistended. Normal active bowel sounds MUSCULOSKELETAL: Extremities without clubbing, cyanosis, left hip dressed. NEURO: Alert & Oriented x4 to person, place, time, situation. Moves all ext x4. Results - Labs CBC & Chem 7: 08/17/18 05:32 08/17/18 05:32 Laboratory Results - last 24 hr 08/17/18 08/17/18 05:32 05:32 Hgb 12.5 Hct 37.8 Sodium 141 Potassium 3.8 Chloride 107 Carbon Dioxide 26.4 Anion Gap 8 BUN 10 Creatinine 0.65 Estimated GFR Greater than 89 Random Glucose 130 H Calcium 8.4 L - Imaging Impressions Hip X-Ray 08/16/18 06:51 CONCLUSION: Satisfactory postoperative appearance of the left hip and pelvis following left hip replacement. - Procedures Left total hip arthroplasty using Marcie prosthesis on 08/16/2018. Assessment and Plan - Plan 1. Primary osteoarthritis of the left Hip Status post for Left Total hip arthroplasty using [place] Prosthesis by Doctor Stefan Baird. continue Pain medicine and Physical therapy, okay to discharge from Orthopedic surgery, Hospitalist clear for discharge. 2. Hypothyroidism to continue hormonal replacement 3. Anxiety disorder stable 4. GERD to continue Protonix. 5. Chronic Pain syndrome by history 6. Obesity strongly recommended diet and exercise as outpatient. DVT prophylaxis as per Orthopedic surgery. Signed off the case. Code Status: Full code. Discussed Condition With: Patient and Nurse Miss Laura Discharge Planning: Hospitalist clear for discharge.
[2018-08-18] MEDS ORDERED: Celecoxib 200 MG Capsule PO SCH (09:00)
== END 2018-08-17 16:35 | disposition home health service (06) ==
LOC: HSDI 05:05 → N06 12:13
PROVIDERS: ADMIT Orthopaedic Surgery; ATTEND Orthopaedic Surgery